=== PATIENT | female | born 1995 | race Caucasian/White ===

== ENCOUNTER 2018-08-11 21:24 | Emergency (ER) | payer OTHER ==
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
[2018-08-11 23:02] VITALS: BP 151/112
== END 2018-08-11 23:02 | disposition home or self-care (01) ==
LOC: ED 21:24
DX: S06.9X9A Unspecified intracranial injury with loss of consciousness of unspecified duration, initial encounter (principal); M25.562 Pain in left knee; R42 Dizziness and giddiness; V49.9XXA Car occupant (driver) (passenger) injured in unspecified traffic accident, initial encounter; Y92.410 Unspecified street and highway as the place of occurrence of the external cause
CPT/HCPCS: 70450; 99281